=== PATIENT | male | born 1995 | race Caucasian/White ===

== ENCOUNTER 2017-05-22 09:57 | Emergency (ER) | payer OTHER ==
[~2017-05-22] VITALS: Ht 182.9 cm; Wt 59.0 kg
--- NOTE | 2017-05-22 10:03 | NUR ---
HEART PALPITATIONS SINCE LAST NIGHT. PLACED ON MONITOR. AWAITING MD ORDER
[2017-05-22] MEDS ORDERED: LORAZEPAM 1 MG TABLET ONE ×2 (10:10→10:13)
--- NOTE | 2017-05-22 10:20 | NUR ---
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
[2017-05-22] MEDS ORDERED: LORAZEPAM 1 MG TABLET PO ONE (10:30)
--- NOTE | 2017-05-22 11:09 | NUR ---
Patient discharged to home in stable condition. Written and verbal after care instructions given. Patient verbalizes understanding of instruction.
[2017-05-22 11:10] VITALS: BP 136/84
== END 2017-05-22 11:10 | disposition home or self-care (01) ==
LOC: ER 09:59
DX: R00.2 Palpitations (principal); F41.9 Anxiety disorder, unspecified; F17.200 Nicotine dependence, unspecified, uncomplicated
CPT/HCPCS: 71010; 93005; 99284; A4606; Z7610

== ENCOUNTER 2017-05-23 21:53 | Emergency (ER) | payer OTHER ==
[~2017-05-23] VITALS: Ht 182.9 cm; Wt 59.0 kg
[2017-05-24] MEDS ORDERED: ONDANSETRON 4 MG TAB.RAPDIS SL ONE
[2017-05-24] MEDS ORDERED: ACETAMINOPHEN ES 500 MG TABLET PO ONE
--- NOTE | 2017-05-24 | NUR ---
22 YO MALE BB SELF. PT IS ALERT X 3, C/O RIB PAIN. PT AMBULATED TO ER BED WITH STEADY GAIT, SKIN WARM AND DRY, RR EVEN AND UNLABORED. 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 AWAITING ORDERS FROM PROVIDER, WILL CONTINUE TO MONITOR
[2017-05-24] MEDS ORDERED: ONDANSETRON 4 MG TAB.RAPDIS ONE (00:01)
[2017-05-24] MEDS ORDERED: ACETAMINOPHEN ES 500 MG TABLET ONE (00:01)
[2017-05-24 00:14] LABS: BASOPHILS % (AUTO) 0.3 % (0.0-2.0); EOSINOPHILS # (AUTO) 0.4 /CMM (0.0-0.7); EOSINOPHILS % (AUTO) 4.7 % (0.0-6.0); HEMATOCRIT 42 % (39-51); HEMOGLOBIN 14.2 g/dL (13.5-17.5); LYMPHOCYTES # (AUTO) 4.6 /CMM (0.8-4.8); LYMPHOCYTES % (AUTO) 48.9 % (20.0-44.0); MEAN CORPUSCULAR HEMOGLOBIN 31 PG (26.0-33.0); MEAN CORPUSCULAR HGB CONC 34 g/dl (31.0-36.0); MEAN CORPUSCULAR VOLUME 93 fL (80-96); MONOCYTES # (AUTO) 0.9 /CMM (0.1-1.30); MONOCYTES % (AUTO) 9.9 % (2.0-12.0); NEUTROPHILS # (AUTO) 3.4 /CMM (1.8-8.9); NEUTROPHILS % (AUTO) 36.2 % (43.0-81.0); PLATELET COUNT (AUTO) 215 /CMM (150-450); RDW COEFFICIENT OF VARIATION 12.8 (11.5-15.0); RED BLOOD CELL COUNT(AUTO) 4.51 MIL/uL (4.5-6.0); WHITE BLOOD COUNT (AUTO) 9.4 K/uL (4.3-11.0)
[2017-05-24 00:19] LABS: CARBON DIOXIDE 31 mmol/L (21-32); CHLORIDE 106 mmol/L (98-107); CREATININE 0.8 mg/dL (0.6-1.3); GLUCOSE 88 mg/dL (74-106); POTASSIUM 4.2 mmol/L (3.5-5.1); SODIUM SERUM 144 mmol/L (136-145); UREA NITROGEN, BLOOD 18 mg/dL (7-18)
[2017-05-24 00:30] LABS: TROPONIN I < 0.017 ng/mL (0.00-0.056)
[2017-05-24 00:33] LABS: B-TYPE NATRIURETIC PEPTIDE 80 PG/ML (0-125)
[2017-05-24 01:08] VITALS: BP 124/62
--- NOTE | 2017-05-24 01:08 | NUR ---
Patient discharged to home in stable condition. Written and verbal after care instructions given. Patient verbalizes understanding of instruction. PT ambulatory with a steady gait VITAL SIGNS WITHIN NORMAL LIMITS.
[2017-05-24] MEDS ORDERED: IBUPROFEN 600 MG TABLET PO ONE (01:30)
== END 2017-05-24 01:25 | disposition home or self-care (01) ==
LOC: ER 21:56
DX: R07.89 Other chest pain (principal); F12.90 Cannabis use, unspecified, uncomplicated; F17.200 Nicotine dependence, unspecified, uncomplicated
CPT/HCPCS: 36415; 80048-TC; 83880; 84484-TC; 85025-TC; 85378-TC; A4606; Q0162; Z7610